=== PATIENT | male | born 1995 | race Two or more races ===

== ENCOUNTER → 2024-07-30 | Outpatient (CLI) | payer BC, SELFPAY ==
--- NOTE | 2024-07-30 09:43 | XR_ITS ---
Examination: Lumbar spine 3 views Technique one AP lateral coned lateral lower lumbar spine 3 views Exam date and time: July 30, 2024 1002 hours INDICATIONS: Status post lumbar surgery July 23, 2024 FINDINGS: Transpedicular lumbar fusion L4-S1 with anatomic alignment Disc spacer L4-L5 No lumbar fracture IMPRESSION: Transpedicular lumbar stabilization L4-S1 with anatomic alignment
== END | disposition home or self-care (01) ==
LOC: CDIM 09:25
PROVIDERS: PCP Nurse Practitioner Family; Referring Provider Orthopaedic Surgery Orthopaedic Surgery of the Spine; Visit Provider Orthopaedic Surgery Orthopaedic Surgery of the Spine
DX: M54.51 Vertebrogenic low back pain (principal); Z47.89 Encounter for other orthopedic aftercare
CPT/HCPCS: 72100

== ENCOUNTER → 2024-09-03 | Outpatient (CLI) | payer BC, SELFPAY ==
--- NOTE | 2024-09-03 08:45 | XR_ITS ---
EXAMINATION: US liver ORDERING PROVIDER: Carmella Rodriguez HISTORY: History of hepatic steatosis with right upper quadrant pain for 3 years. TECHNIQUE: Multiplanar still ultrasonography of the right upper quadrant was performed using grayscale imaging, supplemented by color and spectral Doppler as needed. COMPARISON: 12/16/2022, right upper quadrant ultrasound. FINDINGS: Liver: Diffuse increased echogenicity. No focal lesion. 16.6 cm midclavicular craniocaudad length. Gallbladder: Within normal limits. No wall thickening. No pericholecystic fluid. No cholelithiasis. Biliary system: No biliary ductal dilatation. Common bile duct: 0.5 cm. Pancreas: Grossly unremarkable. Vascular: Normal hepatopetal flow in the portal vein. Patent IVC. Other: No ascites or mass. IMPRESSION: Diffusely increased liver echotexture, likely reflecting fatty infiltration or hepatocellular disease.
== END | disposition home or self-care (01) ==
PROVIDERS: PCP Nurse Practitioner Family; Referring Provider Nurse Practitioner Family; Visit Provider Nurse Practitioner Family
DX: K76.0 Fatty (change of) liver, not elsewhere classified (principal)
CPT/HCPCS: 76705

== ENCOUNTER → 2025-05-13 | Outpatient (CLI) | payer BC, MEDICAID, SELFPAY ==
--- NOTE | 2025-05-13 10:30 | XR_ITS ---
Examination: Abdomen sonogram, Limited Date and time of exam: May 13, 2025 Timentin 33 hours INDICATIONS: Elevated liver function tests on laboratory examination performed several months ago. Technique: Real-time hagan scale transabdominal sonographic images of the upper abdomen obtained. Findings: Absent gallbladder Normal common bile duct 0.3 cm Pancreatic head 2.1 cm Liver 14.3 cm fatty infiltration Normal hepatopetal portal venous flow Patent IVC IMPRESSION: Absent gallbladder Normal common bile duct
== END | disposition home or self-care (01) ==
PROVIDERS: PCP Nurse Practitioner Family; Referring Provider Nurse Practitioner Family; Visit Provider Nurse Practitioner Family
DX: R74.01 Elevation of levels of liver transaminase levels (principal); Z90.49 Acquired absence of other specified parts of digestive tract
CPT/HCPCS: 76705